=== PATIENT | female | born 1965 | race Caucasian/White ===

== ENCOUNTER 2020-10-04 15:15 | Emergency (ER) | payer OTHER ==
[~2020-10-04 15:15] MED LIST: CLINDAMYCIN HC300 MG PO; CYANOCOBAL1000 MCG/1 INJ; EXCEDRIN PM PO; FUROSEMIDE20 MG PO; IBUPROFEN800 MG PO; L-LYSINE500 MG PO; LOPRESSOR 25 MG25 MG PO; LORTAB 7.5-3251 EACH PO; LYRICA150 MG PO; MIRALAX 119 GR119 GM GT; OMNICEF 300 MG300 MG PO; PREDNISONE 5 MG5 MG PO; PROTONIX 40 MG40 M1 PO; PROZAC20 MG PO; SEROQUEL400 MG PO; TESSALON PERLE100 MG PO; TRILEPTAL300 MG PO; VITAMIN D250000 UNIT PO
[2020-10-04 17:08] LABS: HEMOGLOBIN 10.6 gm/dl (12.3-15.3); RED BLOOD COUNT 3.51 M/UL (4.00-5.10)
== END 2020-10-04 22:18 | disposition home or self-care (01) ==
LOC: ER1 15:15
PROVIDERS: Preventive Medicine Occupational Medicine
DX: G40.909 Epilepsy, unspecified, not intractable, without status epilepticus (principal); E87.6 Hypokalemia; E86.0 Dehydration
CPT/HCPCS: 80053; 80307; 81001; 82550; 82553; 83690; 83874; 84484; 85025; 86140; 87086; 93005; 96365; 96375; 99284; J2060; J3480; J7030

== ENCOUNTER → 2020-10-20 | Outpatient (CLI) | payer OTHER, MEDICARE | LOC: EMI 08:35 | DX: G40.909 Epilepsy, unspecified, not intractable, without status epilepticus (principal); R55 Syncope and collapse | CPT/HCPCS: 70551 ==

== ENCOUNTER 2021-03-15 11:20 | Inpatient (IN) | payer OTHER, MEDICARE ==
[~2021-03-15] VITALS: Ht 157.5 cm; Wt 62.6 kg
[~2021-03-15 11:20] MED LIST changes: -LYRICA150 MG PO; -PROZAC20 MG PO; -SEROQUEL400 MG PO; -VITAMIN D250000 UNIT PO
[2021-03-15 12:22] LABS: HEMOGLOBIN 12.5 gm/dl (12.3-15.3); RED BLOOD COUNT 4.16 M/UL (4.00-5.10)
[2021-03-15 13:10] LABS: BUN/CREATININE RATIO 15 (0-10)
[2021-03-15] MEDS ORDERED: VITAMIN D21250 MCG PO (16:21)
[2021-03-15] MEDS ORDERED: LYRICA150 MG PO (16:30)
[2021-03-15] MEDS ORDERED: PROZAC20 MG PO (16:30)
[2021-03-15] MEDS ORDERED: SEROQUEL200 MG PO (16:31)
[2021-03-15] MEDS ORDERED: BRIVIACT75 MG PO (19:27)
[2021-03-15] MEDS ORDERED: PROMETHAZINE HC25 M1 PO (19:27)
[2021-03-15] MEDS ORDERED: CELECOXIB200 MG PO (19:27)
[2021-03-15] MEDS ORDERED: HYDROMORPHONE HC4 MG PO (19:28)
[2021-03-15] MEDS ORDERED: [UNRECOGNIZED DRUG - OTHER] SC (19:36)
[2021-03-15] MEDS ORDERED: ROBAXIN 750 MG750 MG PO (19:36)
[2021-03-15] MEDS ORDERED: ROZEREM8 MG PO (19:37)
[2021-03-15] MEDS ORDERED: DESYREL 50 MG T50 MG PO (19:37)
[2021-03-16 08:17] LABS: HEMOGLOBIN 10.7 gm/dl (12.3-15.3); WHITE BLOOD COUNT 13.1 K/UL (4.5-11.0)
[2021-03-16 08:43] LABS: RED BLOOD COUNT 3.7 M/UL (4.00-5.10)
[2021-03-16 09:04] LABS: BUN/CREATININE RATIO 18 (0-10)
[2021-03-17 06:45] LABS: HEMOGLOBIN 8.8 gm/dl (12.3-15.3)
[2021-03-17 07:03] LABS: RED BLOOD COUNT 3.01 M/UL (4.00-5.10); WHITE BLOOD COUNT 8.9 K/UL (4.5-11.0)
[2021-03-17 07:16] LABS: BUN/CREATININE RATIO 16 (0-10)
[2021-03-18 06:43] LABS: WHITE BLOOD COUNT 8.1 K/UL (4.5-11.0)
[2021-03-18 06:45] LABS: RED BLOOD COUNT 3.66 M/UL (4.00-5.10)
[2021-03-18 06:46] LABS: HEMOGLOBIN 10.8 gm/dl (12.3-15.3)
[2021-03-18 07:16] LABS: BUN/CREATININE RATIO 12 (0-10)
[2021-03-19 09:34] LABS: HEMOGLOBIN 9.4 gm/dl (12.3-15.3); WHITE BLOOD COUNT 8.3 K/UL (4.5-11.0)
[2021-03-19 09:35] LABS: RED BLOOD COUNT 3.14 M/UL (4.00-5.10)
[2021-03-19 10:13] LABS: BUN/CREATININE RATIO 12 (0-10)
[2021-03-19] MEDS ORDERED: LEVOFLOXACIN500 MG PO (18:20)
== END 2021-03-19 20:00 | disposition home or self-care (01) | DRG 439 ==
LOC: ER1 11:20 → MED SURG 4 18:17 → CDU 18:17 → MED SURG 4 19:47
PROVIDERS: Internal Medicine; Physician Assistant; ADMIT Internal Medicine
DX: K85.90 Acute pancreatitis without necrosis or infection, unspecified (principal); N30.00 Acute cystitis without hematuria; K35.80 Unspecified acute appendicitis; E87.2 Acidosis; Z20.822 Contact with and (suspected) exposure to COVID-19; E87.6 Hypokalemia; M54.9 Dorsalgia, unspecified; G40.909 Epilepsy, unspecified, not intractable, without status epilepticus; Z95.828 Presence of other vascular implants and grafts; Z90.49 Acquired absence of other specified parts of digestive tract; Z90.710 Acquired absence of both cervix and uterus; Z98.890 Other specified postprocedural states; Z82.49 Family history of ischemic heart disease and other diseases of the circulatory system; Z79.899 Other long term (current) drug therapy
CPT/HCPCS: 36415; 80053; 80061; 81001; 82150; 82550; 82553; 82803; 83605; 83690; 83735; 83874; 84132; 84484; 85025; 93005; 96365; 96375; 99285; C9113; J1170; J2185; J2405; J2550; J3480; J7030; Q9967; U0002

== ENCOUNTER 2021-04-16 06:20 | Inpatient (IN) | payer OTHER, MEDICARE ==
[~2021-04-16] VITALS: Ht 170.2 cm; Wt 61.7 kg
[~2021-04-16 06:20] MED LIST changes: +BRIVIACT75 MG PO; +CELECOXIB200 MG PO; +DESYREL 50 MG T50 MG PO; +HYDROMORPHONE HC4 MG PO; +LEVOFLOXACIN500 MG PO; +LYRICA150 MG PO; +PROMETHAZINE HC25 M1 PO; +ROBAXIN 750 MG750 MG PO; +ROZEREM8 MG PO; +SEROQUEL200 MG PO; +VITAMIN D21250 MCG PO
[2021-04-16] MEDS ORDERED: CELECOXIB200 MG PO (11:03)
[2021-04-16] MEDS ORDERED: PROMETHAZINE HC25 M1 PO (11:04)
[2021-04-16] MEDS ORDERED: HYDROMORPHONE HC4 MG PO (11:04)
[2021-04-16] MEDS ORDERED: IBU800 MG PO (11:05)
[2021-04-16] MEDS ORDERED: DAILY VALUE1 EACH PO (11:05)
[2021-04-16 13:11] LABS: HEMOGLOBIN 9.8 gm/dl (12.3-15.3); RED BLOOD COUNT 3.39 M/UL (4.00-5.10); WHITE BLOOD COUNT 8.8 K/UL (4.5-11.0)
[2021-04-16] MEDS ORDERED: PROZAC20 MG PO (16:30)
[2021-04-16] MEDS ORDERED: SUMATRIPTAN SU100 MG PO (19:36)
[2021-04-17 06:45] LABS: HEMOGLOBIN 8.6 gm/dl (12.3-15.3)
[2021-04-17 06:47] LABS: RED BLOOD COUNT 2.87 M/UL (4.00-5.10)
[2021-04-17 07:20] LABS: BUN/CREATININE RATIO 17 (0-10)
[2021-04-18 10:08] LABS: HEMOGLOBIN 9.8 gm/dl (12.3-15.3); WHITE BLOOD COUNT 6.5 K/UL (4.5-11.0)
[2021-04-18 10:09] LABS: RED BLOOD COUNT 3.33 M/UL (4.00-5.10)
[2021-04-18 10:28] LABS: BUN/CREATININE RATIO 16 (0-10)
[2021-04-18] MEDS ORDERED: SULFAMETHOXAZO1 EACH PO (11:44)
[2021-04-18] MEDS ORDERED: ADULT LOW DOSE81 MG PO (11:46)
[2021-04-19 06:18] LABS: HEMOGLOBIN 8.1 gm/dl (12.3-15.3); WHITE BLOOD COUNT 5.1 K/UL (4.5-11.0)
[2021-04-19 06:19] LABS: RED BLOOD COUNT 2.73 M/UL (4.00-5.10)
[2021-04-19 06:40] LABS: BUN/CREATININE RATIO 14 (0-10)
== END 2021-04-19 15:21 | disposition home health service (06) | DRG 493 ==
LOC: MED SURG 4 06:20
PROVIDERS: Internal Medicine; Orthopaedic Surgery; Physician Assistant; ADMIT Internal Medicine
PROC: 0QSJ04Z Reposition Right Fibula with Internal Fixation Device, Open Approach (ICD-10-PCS; principal; 2021-04-17 16:03)
DX: S82.842A Displaced bimalleolar fracture of left lower leg, initial encounter for closed fracture (principal); N30.00 Acute cystitis without hematuria; Z20.822 Contact with and (suspected) exposure to COVID-19; G40.802 Other epilepsy, not intractable, without status epilepticus; B96.20 Unspecified Escherichia coli [E. coli] as the cause of diseases classified elsewhere; G40.909 Epilepsy, unspecified, not intractable, without status epilepticus; M06.9 Rheumatoid arthritis, unspecified; K21.9 Gastro-esophageal reflux disease without esophagitis; E87.6 Hypokalemia; D69.6 Thrombocytopenia, unspecified; G89.4 Chronic pain syndrome; D50.9 Iron deficiency anemia, unspecified; W18.30XA Fall on same level, unspecified, initial encounter; Y92.091 Bathroom in other non-institutional residence as the place of occurrence of the external cause; Z79.01 Long term (current) use of anticoagulants; Z79.82 Long term (current) use of aspirin; Z87.440 Personal history of urinary (tract) infections; Z90.710 Acquired absence of both cervix and uterus; Z90.49 Acquired absence of other specified parts of digestive tract; Z98.84 Bariatric surgery status; Z88.0 Allergy status to penicillin; Z80.1 Family history of malignant neoplasm of trachea, bronchus and lung; Z82.49 Family history of ischemic heart disease and other diseases of the circulatory system; Z81.8 Family history of other mental and behavioral disorders
CPT/HCPCS: 36415; 73600; 73610; 76000; 80048; 80053; 81001; 82607; 82728; 82746; 83540; 83550; 83735; 84132; 85025; 85610; 86850; 86900; 86901; 87077; 87086; 87186; 97161; 97165; 97530; 97530-GP-CQ; 97535; C1713; J0690; J1100; J2001; J2250; J2270; J2370; J2405; J2704; J2710; J2765; J2795; J3010; J7030; J7120; U0002

== ENCOUNTER → 2021-05-13 | Day surgery (SDC) | payer OTHER, MEDICARE ==
[~2021-05-13] MED LIST changes: +ADULT LOW DOSE81 MG PO; +CELEBREX200 MG PO; +DAILY VALUE1 EACH PO; +IBU800 MG PO; +PROZAC20 MG PO; +SULFAMETHOXAZO1 EACH PO; +SUMATRIPTAN SU100 MG PO; +VIMPAT50 MG PO
== END | disposition home or self-care (01) ==
LOC: OR 07:09
DX: R10.13 Epigastric pain (principal); K76.0 Fatty (change of) liver, not elsewhere classified; K28.9 Gastrojejunal ulcer, unspecified as acute or chronic, without hemorrhage or perforation; D50.9 Iron deficiency anemia, unspecified; Z98.84 Bariatric surgery status; M06.9 Rheumatoid arthritis, unspecified; K21.9 Gastro-esophageal reflux disease without esophagitis; G40.909 Epilepsy, unspecified, not intractable, without status epilepticus; Z20.822 Contact with and (suspected) exposure to COVID-19; G43.909 Migraine, unspecified, not intractable, without status migrainosus; Z88.0 Allergy status to penicillin; R74.8 Abnormal levels of other serum enzymes
CPT/HCPCS: J2704; J7040

== ENCOUNTER 2021-11-02 15:16 | Emergency (ER) | payer OTHER, MEDICARE ==
[2021-11-02 17:20] LABS: HEMOGLOBIN 11.7 gm/dl (12.3-15.3); RED BLOOD COUNT 4.11 M/UL (4.00-5.10); WHITE BLOOD COUNT 6.9 K/UL (4.5-11.0)
[2021-11-02 17:44] LABS: BUN/CREATININE RATIO 23 (0-10)
== END 2021-11-02 22:38 | disposition home or self-care (01) ==
LOC: ER1 15:16
PROVIDERS: Physician Assistant
DX: R42 Dizziness and giddiness (principal); R07.89 Other chest pain; G40.909 Epilepsy, unspecified, not intractable, without status epilepticus; M06.9 Rheumatoid arthritis, unspecified; Z90.89 Acquired absence of other organs; Z90.49 Acquired absence of other specified parts of digestive tract; Z90.710 Acquired absence of both cervix and uterus; Z88.0 Allergy status to penicillin; Z51.81 Encounter for therapeutic drug level monitoring
CPT/HCPCS: 70450; 71045; 80053; 82550; 82553; 83605; 84484; 85025; 85610; 85730; 93005; 99285

== ENCOUNTER 2022-01-02 20:26 | Inpatient (IN) | payer OTHER, MEDICARE ==
[~2022-01-02] VITALS: Ht 165.1 cm; Wt 58.5 kg
[~2022-01-02 20:26] MED LIST changes: +LASIX20 MG PO; +LIDOCAINE 5% TOP; +MIDODRINE HCL10 MG PO; -PROZAC20 MG PO; +PROZAC40 MG PO; +SEROQUEL XR300 MG PO; -SEROQUEL200 MG PO; +TAB-A-VITE TA400 MC1 PO
[2022-01-03] MEDS ORDERED: METOPROLOL TART25 MG PO (10:25)
[2022-01-03 13:34] LABS: HEMOGLOBIN 8.9 gm/dl (12.3-15.3); RED BLOOD COUNT 3.19 M/UL (4.00-5.10); WHITE BLOOD COUNT 13.6 K/UL (4.5-11.0)
[2022-01-03 13:58] LABS: BUN/CREATININE RATIO 21 (0-10)
[2022-01-04 06:14] LABS: HEMOGLOBIN 7.4 gm/dl (12.3-15.3); WHITE BLOOD COUNT 12.2 K/UL (4.5-11.0)
[2022-01-04 06:20] LABS: RED BLOOD COUNT 2.59 M/UL (4.00-5.10)
[2022-01-04 06:37] LABS: BUN/CREATININE RATIO 19 (0-10)
[2022-01-04 20:23] LABS: HEMOGLOBIN 8.8 gm/dl (12.3-15.3)
[2022-01-04 20:34] LABS: BUN/CREATININE RATIO 14 (0-10)
[2022-01-05 06:34] LABS: HEMOGLOBIN 8.3 gm/dl (12.3-15.3); WHITE BLOOD COUNT 9.8 K/UL (4.5-11.0)
[2022-01-05 06:35] LABS: RED BLOOD COUNT 2.92 M/UL (4.00-5.10)
[2022-01-05 07:02] LABS: BUN/CREATININE RATIO 15 (0-10)
[2022-01-06 07:00] LABS: HEMOGLOBIN 8.9 gm/dl (12.3-15.3); RED BLOOD COUNT 3.1 M/UL (4.00-5.10)
[2022-01-06 07:01] LABS: WHITE BLOOD COUNT 5.5 K/UL (4.5-11.0)
[2022-01-06 07:20] LABS: BUN/CREATININE RATIO 21 (0-10)
[2022-01-07 06:46] LABS: HEMOGLOBIN 8.9 gm/dl (12.3-15.3); RED BLOOD COUNT 3.13 M/UL (4.00-5.10)
[2022-01-07 06:48] LABS: WHITE BLOOD COUNT 12.1 K/UL (4.5-11.0)
[2022-01-07 07:09] LABS: BUN/CREATININE RATIO 27 (0-10)
[2022-01-09 06:21] LABS: HEMOGLOBIN 9.5 gm/dl (12.3-15.3); RED BLOOD COUNT 3.35 M/UL (4.00-5.10); WHITE BLOOD COUNT 11.5 K/UL (4.5-11.0)
[2022-01-09 06:41] LABS: BUN/CREATININE RATIO 23 (0-10)
--- NOTE | 2022-01-09 12:51 | NUR ---
Patient ambulated in room without nasal cannula in place. O2 Sat remained 98% and above after several consecutive laps of the room.
[2022-01-09] MEDS ORDERED: LEVOFLOXACIN500 MG PO (12:53)
[2022-01-10 21:11] LABS: ANTIMYELOPEROXIDASE (MPO) ABS <0.2 units (0.0-0.9); ANTIPROTEINASE 3 (PR-3) ABS <0.2 units (0.0-0.9); ATYPICAL PANCA <1:20 titer (Neg:<1:20); CYTOPLASMIC (C-ANCA) <1:20 titer (Neg:<1:20); PERINUCLEAR (P-ANCA) <1:20 titer (Neg:<1:20)
== END 2022-01-09 14:51 | disposition home or self-care (01) | DRG 871 ==
LOC: MED SURG 4 01-03 10:05
PROVIDERS: Internal Medicine; Nurse Practitioner Family; Physician Assistant Medical; ADMIT Internal Medicine Infectious Disease
PROC: B24BZZZ Ultrasonography of Heart with Aorta (ICD-10-PCS; principal; 2022-01-04)
PROC: 5A0935A Assistance with Respiratory Ventilation, Less than 24 Consecutive Hours, High Flow/Velocity Cannula (ICD-10-PCS; 2022-01-04)
DX: A41.9 Sepsis, unspecified organism (principal); I50.33 Acute on chronic diastolic (congestive) heart failure; J69.0 Pneumonitis due to inhalation of food and vomit; J96.01 Acute respiratory failure with hypoxia; Z20.822 Contact with and (suspected) exposure to COVID-19; J18.9 Pneumonia, unspecified organism; J84.9 Interstitial pulmonary disease, unspecified; I13.0 Hypertensive heart and chronic kidney disease with heart failure and stage 1 through stage 4 chronic kidney disease, or unspecified chronic kidney disease; F11.20 Opioid dependence, uncomplicated; R65.20 Severe sepsis without septic shock; Z96.698 Presence of other orthopedic joint implants; D50.9 Iron deficiency anemia, unspecified; M06.9 Rheumatoid arthritis, unspecified; G40.909 Epilepsy, unspecified, not intractable, without status epilepticus; E87.6 Hypokalemia; K21.9 Gastro-esophageal reflux disease without esophagitis; I08.1 Rheumatic disorders of both mitral and tricuspid valves; G89.4 Chronic pain syndrome; F41.9 Anxiety disorder, unspecified; F32.A Depression, unspecified; K59.00 Constipation, unspecified; Z86.711 Personal history of pulmonary embolism; Z79.01 Long term (current) use of anticoagulants; Z85.118 Personal history of other malignant neoplasm of bronchus and lung; Z88.0 Allergy status to penicillin
CPT/HCPCS: ECHO; 0241U; 36415; 71045; 71046; 73060; 74018; 80048; 80053; 81001; 82550; 82553; 83520; 83735; 83880; 84439; 84443; 84484; 85014; 85018; 85025; 85027; 85652; 86038; 86140; 86256; 86331; 86602; 86609; 86671; 87040; 87086; 93005; 93306; 94640; 94664; 94760; 97116; 97116-GP-CQ; 97162; C1751; J1170; J1885; J1940; J1956; J2405; J2550; J2920; J2930; Q9967

== ENCOUNTER → 2022-01-19 | Outpatient (CLI) | payer OTHER, MEDICARE ==
[~2022-01-19] MED LIST changes: +METOPROLOL TART25 MG PO
== END ==
LOC: RAD 10:29
DX: R07.9 Chest pain, unspecified (principal); R06.02 Shortness of breath; J98.11 Atelectasis
CPT/HCPCS: 71046